=== PATIENT | male | born 1965 | race American Indian/Alaskan Native ===

== ENCOUNTER 2016-12-12 11:22 | Emergency (ER) | payer OTHER ==
--- NOTE | 2016-12-12 12:56 | Emergency Department Report ---
ED General Adult HPI - General Chief complaint: Back Pain/Injury Stated complaint: BACK PAIN Time Seen by Provider: 12/12/16 12:51 Source: patient, RN notes reviewed Mode of arrival: Ambulatory Limitations: No Limitations - History of Present Illness Initial comments: This is a 51-year-old male. He is previously unknown to me. He does not have a primary care doctor. Reports a past medical history of elevated blood pressure, not currently on prescription medications. May have a history of kidney stones, he is not certain. The patient does a lot of heavy lifting at work. He presents to the ER with right paralumbar and parathoracic muscular back pain. The pain is sharp, increased with palpation, range of motion, twisting, laying on his side. It decreases with rest. It does not radiate anywhere. There is no chest pain or shortness of breath. There is no testicular pain. No irritative or obstructive urinary symptoms. No bladder or bowel retention or incontinence. No saddle anesthesia. No hematuria. -: Gradual Location: back Radiation: non-radiation Severity scale (0 -10): 8 Quality: burning, stabbing, aching Consistency: constant Improves with: medication, rest Worsens with: movement Associated Symptoms: denies other symptoms - Related Data Previous Rx's Medication Instructions Recorded Last Taken Type Ketorolac [Toradol] 10 mg PO Q6H PRN #20 tablet 12/12/16 Unknown Rx Methocarbamol [Robaxin TAB] 750 mg PO TID PRN #30 tab 12/12/16 Unknown Rx Allergies Allergy/AdvReac Type Severity Reaction Status Date / Time No Known Allergies Allergy Unverified 12/12/16 11:54 ED Review of Systems ROS: Stated complaint: BACK PAIN Other details as noted in HPI Constitutional: denies: malaise Eyes: denies: vision change ENT: denies: epistaxis Respiratory: denies: cough Cardiovascular: denies: chest pain Gastrointestinal: denies: abdominal pain, nausea, diarrhea Genitourinary: denies: urgency, dysuria Musculoskeletal: back pain Skin: denies: lesions Neurological: denies: headache, weakness Psychiatric: denies: anxiety ED Past Medical Hx - Past Medical History Previous Medical History?: No - Surgical History Additional Surgical History: R arm & ankle surgery, hernia repair - Social History Smoking Status: Never Smoker Substance Use Type: Alcohol - Medications Home Medications: Home Medications Medication Instructions Recorded Confirmed Last Taken Type Ketorolac [Toradol] 10 mg PO Q6H PRN #20 tablet 12/12/16 Unknown Rx Methocarbamol [Robaxin TAB] 750 mg PO TID PRN #30 tab 12/12/16 Unknown Rx ED Physical Exam - General Limitations: No Limitations General appearance: alert, in no apparent distress - Head Head exam: Present: atraumatic, normocephalic - Eye Eye exam: Present: normal appearance, EOMI. Absent: nystagmus - ENT ENT exam: Present: normal exam, normal orophraynx, mucous membranes moist, normal external ear exam - Neck Neck exam: Present: normal inspection, full ROM. Absent: tenderness, meningismus - Respiratory Respiratory exam: Present: normal lung sounds bilaterally. Absent: respiratory distress, wheezes, rales, rhonchi, stridor, decreased breath sounds - Cardiovascular Cardiovascular Exam: Present: regular rate, normal rhythm, normal heart sounds. Absent: bradycardia, tachycardia, irregular rhythm, systolic murmur, diastolic murmur, rubs, gallop - GI/Abdominal GI/Abdominal exam: Present: soft, normal bowel sounds. Absent: distended, tenderness, guarding, rebound, rigid, pulsatile mass - Rectal Rectal exam: Present: deferred - Extremities Exam Extremities exam: Present: normal inspection, full ROM, normal capillary refill , other (2+ pulses are noted in 4 extremities). Absent: tenderness, pedal edema , joint swelling, calf tenderness - Back Exam Back exam: Present: normal inspection, CVA tenderness (R), paraspinal tenderness - Neurological Exam Neurological exam: Present: alert, oriented X3, normal gait, other (Extraocular movements intact. Tongue midline. No facial droop. Facial sensation intact to light touch in the V1, V2, V3 distribution bilaterally. 5 and 5 strength in 4 extremities.. Sensation is intact to light touch in 4 extremities.). Absent : motor sensory deficit - Psychiatric Psychiatric exam: Present: normal affect, normal mood - Skin Skin exam: Present: warm, dry, intact, normal color. Absent: rash ED Course Vital Signs 12/12/16 12/12/16 12/12/16 11:44 12:54 12:56 Temperature 98.7 F 98.5 F Pulse Rate 95 H 87 Respiratory 20 16 16 Rate Blood Pressure 196/130 Blood Pressure 185/116 [Right] O2 Sat by Pulse 96 97 97 Oximetry - Reevaluation(s) Reevaluation #1: 12/12/16 14:36 Differential diagnosis: Muscular pain, muscular spasm, renal colic, AAA, urinary tract infection, pyelonephritis Assessment and plan: 51-year-old male with mechanical back pain, does a lot of heavy lifting for work. The pain is exquisitely reproducible. Elevated blood pressure is appreciated, this is chronic, the patient is not taking any prescription medications. He has no pulmonary embolus or DVT risk factors, he is low risk by well's criteria. He has a normal neurologic exam, with appropriate strength, sensation, proprioception in 4 extremities. Skin medical picture is not consistent with epidural compression syndrome, and the patient reported marked improvement after Toradol and hydromorphone. He is instructed to follow-up with a primary care doctor for his elevated blood pressure. The risks of not following up for elevated blood pressure were explicitly reviewed with the patient. A noncontrast CT scan of the abdomen and pelvis did not do demonstrate any acute pathology, and his laboratory studies and urinalysis were not consistent with renal insufficiency, pancreatitis, biliary colic, or urinary tract infection. ED Medical Decision Making - Lab Data Result diagrams: 12/12/16 13:27 12/12/16 13:27 Vital Signs 12/12/16 12/12/16 12/12/16 11:44 12:54 12:56 Temperature 98.7 F 98.5 F Pulse Rate 95 H 87 Respiratory 20 16 16 Rate Blood Pressure 196/130 Blood Pressure 185/116 [Right] O2 Sat by Pulse 96 97 97 Oximetry Lab Results 12/12/16 12/12/16 12/12/16 Range/Units 13:27 13:27 Unknown WBC 11.1 H (4.5-11.0) K/mm3 RBC 5.60 H (3.65-5.03) M/mm3 Hgb 16.7 H (11.8-15.2) gm/dl Hct 50.3 H (35.5-45.6) % MCV 90 (84-94) fl MCH 30 (28-32) pg MCHC 33 (32-34) % RDW 13.7 (13.2-15.2) % Plt Count 272 (140-440) K/mm3 Sodium 138 (137-145) mmol/L Potassium 4.3 (3.6-5.0) mmol/L Chloride 101.8 (98-107) mmol/L Carbon Dioxide 22 (22-30) mmol/L Anion Gap 19 mmol/L BUN 13 (9-20) mg/dL Creatinine 0.7 L (0.8-1.5) mg/dL Estimated GFR > 60 ml/min BUN/Creatinine Ratio 18.57 % Glucose 93 (75-100) mg/dL Calcium 9.1 (8.4-10.2) mg/dL Total Bilirubin 0.9 (0.1-1.2) mg/dL AST 24 (5-40) units/L ALT 26 (7-56) units/L Alkaline Phosphatase 103 (35-129) units/L Total Creatine Kinase 123 (55-170) units/L Total Protein 7.6 (6.3-8.2) g/dL Albumin 4.4 (3.9-5) g/dL Albumin/Globulin Ratio 1.4 % Lipase 13 (13-60) units/L Urine Color Yellow (Yellow) Urine Turbidity Clear (Clear) Urine pH 8.0 H (5.0-7.0) Ur Specific [place] 1.018 (1.003-1.030) Urine Protein <15 mg/dl (Negative) mg/dL Urine Glucose (UA) Neg (Negative) mg/dL Urine Ketones Neg (Negative) mg/dL Urine Blood Neg (Negative) Urine Nitrite Neg (Negative) Urine Bilirubin Neg (Negative) Urine Urobilinogen < 2.0 (<2.0) mg/dL Ur Leukocyte Esterase Neg (Negative) Urine WBC (Auto) < 1.0 (0.0-6.0) /HPF Urine RBC (Auto) 2.0 (0.0-6.0) /HPF Urine Mucus Few /HPF - EKG Data -: EKG Interpreted by [place] EKG shows normal: sinus rhythm, axis, intervals, QRS complexes, ST-T waves Rate: normal - EKG Data When compared to previous EKG there are: previous EKG unavailable - Radiology Data Radiology results: report reviewed, image reviewed Noncontrast CT scan of the abdomen and pelvis negative for acute disease. Scattered punctate renal calyceal stones noted in both kidneys. 4 cm cyst noted in the superior pole of the right kidney. Normal appendix. Critical care attestation.: If time is entered above; I have spent that time in minutes in the direct care of this critically ill patient, excluding procedure time. ED Disposition Clinical Impression: Back pain, Elevated blood pressure Disposition: DISCHARGED TO HOME OR SELFCARE Is pt being admited?: No Does the pt Need Aspirin: No Condition: Stable Instructions: Back Pain (ED), Hypertension (ED) Additional Instructions: Rest and avoid heavy lifting. Take the medications as directed. If taking the methocarbamol for pain, do not drive, consume alcohol, operate motor vehicles, or make important decisions. This medication is sedating. Follow-up with a primary care doctor within the next 7-10 days. Please note that your blood pressure was elevated while in the emergency department. This should be followed up by a primary care doctor within the recommended timeframe. Long-term complications of hypertension/elevated blood pressure include stroke, heart attack, disability, , paralysis, loss of quality of life. Return to the ER right away with new pain, worsened pain, migration of pain, fevers or chills, intractable nausea or vomiting, inability to tolerate liquid feeds. Referrals: PRIMARY MD JENNIFER [Primary Care Provider] - 3-5 Days BERENICE ECHOLS MD [Staff Physician] - 3-5 Days [facility] [Provider Group] - 3-5 Days Forms: Work/School Release Form(ED)
[2016-12-12 13:14] LABS: Bilirubin,Urine NEG (Negative); Blood,Urine NEG (Negative); Ketones,Urine NEG (Negative); Leukocyte Esterase,Urine NEG (Negative); Mucus,Urine FEW /HPF; Nitrite,Urine NEG (Negative); Protein,Urine <15 mg/dL mg/dL (Negative); Urobilinogen,Urine < 2.0 mg/dL (<2.0); WBC,Urine < 1.0 /HPF (0.0-6.0)
[2016-12-12] MEDS ORDERED: DILAUDID IV ONE (13:15)
[2016-12-12] MEDS ORDERED: TYLENOL PO ONE (13:15)
[2016-12-12] MEDS ORDERED: TORADOL IV ONE (13:15)
[2016-12-12] MEDS ORDERED: NACL 0.9% 1000 ML 1,000 ML IV ONE (13:15)
[2016-12-12 13:41] LABS: Hematocrit 50.3 % (35.5-45.6); Hemoglobin 16.7 gm/dl (11.8-15.2); Mean Corpuscular HGB Conc 33 % (32-34); Mean Corpuscular Hemoglobin 30 pg (28-32); Mean Corpuscular Volume 90 fl (84-94); Platelet Count 272 K/mm3 (140-440); Red Cell Distribution Width 13.7 % (13.2-15.2); White Blood Count 11.1 K/mm3 (4.5-11.0)
[2016-12-12 13:58] LABS: Alanine Aminotransferase 26 units/L (7-56); Albumin 4.4 g/dL (3.9-5); Albumin/Globulin Ratio 1.4 %; Alkaline Phosphatase 103 units/L (35-129); Anion Gap 19 mmol/L; BUN/Creatinine Ratio 18.57; Bilirubin,Total 0.9 mg/dL (0.1-1.2); Blood Urea Nitrogen 13 mg/dL (9-20); Calcium 9.1 mg/dL (8.4-10.2); Carbon Dioxide 22 mmol/L (22-30); Chloride 101.8 mmol/L (98-107); Creatine Kinase 123 units/L (55-170); Glucose 93 mg/dL (75-100); Lipase 13 units/L (13-60); Potassium 4.3 mmol/L (3.6-5.0); Sodium 138 mmol/L (137-145); Total Protein 7.6 g/dL (6.3-8.2)
--- NOTE | 2016-12-12 14:08 | Cat Scan Report ---
CT OF THE ABDOMEN AND PELVIS WITHOUT CONTRAST HISTORY: Back pain, flank pain. TECHNIQUE: Helical CT without contrast. Sagittal and coronal reformatted images. FINDINGS: There are scattered punctate renal calyceal stones in both kidneys. 4 cm cyst is identified at the superior pole of the right kidney. The ureters are normal course and caliber. Normal bladder. Normal liver, biliary system, pancreas, spleen and adrenal glands. The bowel loops are normal caliber and wall thickness. Normal appendix. The aorta is normal caliber. No evidence for aneurysm. No ascites, adenopathy or acute inflammation. The lung bases are clear. Normal heart size. No suspicious bony lesion. IMPRESSION: Punctate bilateral renal stones, no hydronephrosis or ureteral stones. Right renal cyst.
[2016-12-12 14:55] VITALS: BP 195/114
== END 2016-12-12 14:57 | disposition home or self-care (01) ==
LOC: ED 11:22
DX: M54.5 Low back pain (principal); M54.6 Pain in thoracic spine; R03.0 Elevated blood-pressure reading, without diagnosis of hypertension
CPT/HCPCS: 36415; 74176; 80053; 81001; 82550; 83690; 85027; 93005; 93010; 96361; 96374; 96375; 99284; J1170; J1885; J7030

== ENCOUNTER 2022-04-09 23:33 | Emergency (ER) | payer OTHER ==
[2022-04-10] MEDS ORDERED: KETOROLAC 10 MG TAB PO ONE (00:40)
--- NOTE | 2022-04-10 00:48 | Emergency Department Report ---
ED Fall HPI - General Chief Complaint: Fall Stated Complaint: FALL/BALANCE OFF Time Seen by Provider: 04/10/22 00:39 Source: patient Mode of arrival: Ambulatory - History of Present Illness Initial Comments: 56 yo M brought in by family member with a fall in the bathroom. Pt was suppose to be taken a bath when the family member heard a fall. She tried to pick patient up then fell again. Pt now c/o right shoulder pain and headache. No other modifying or associated factors. MD Complaint: fall - Related Data Previous Rx's Medication Instructions Recorded Last Taken Type Ketorolac [Toradol] 10 mg PO Q6H PRN #20 tablet 12/12/16 Unknown Rx methOCARBAMOL [Robaxin TAB] 750 mg PO TID PRN #30 tab 12/12/16 Unknown Rx Amlodipine Besylate [Norvasc] 10 mg PO DAILY #30 tablet 08/11/18 Unknown Rx Aspirin EC [Halfprin EC] 81 mg PO QDAY #30 tablet. 08/11/18 Unknown Rx AtorvaSTATin [Lipitor] 40 mg PO QHS #30 tablet 08/11/18 Unknown Rx Pantoprazole [Protonix TAB] 40 mg PO QDAY #30 tablet 08/11/18 Unknown Rx lisinopriL [Zestril TAB] 20 mg PO QDAY #30 tablet 08/11/18 Unknown Rx Allergies Allergy/AdvReac Type Severity Reaction Status Date / Time No Known Allergies Allergy Verified 08/08/18 18:31 ED Review of Systems ROS: Stated complaint: FALL/BALANCE OFF Other details as noted in HPI Comment: All other systems reviewed and negative Musculoskeletal: myalgia, other (right shoulder pain and headache ) Neurological: headache ED Past Medical Hx - Past Medical History Hx Hypertension: Yes - Surgical History Additional Surgical History: R arm & ankle surgery, hernia repair - Social History Smoking Status: Never Smoker - Medications Home Medications: Home Medications Medication Instructions Recorded Confirmed Last Taken Type Ketorolac [Toradol] 10 mg PO Q6H PRN #20 tablet 12/12/16 08/09/18 Unknown Rx methOCARBAMOL [Robaxin TAB] 750 mg PO TID PRN #30 tab 12/12/16 08/09/18 Unknown Rx Amlodipine Besylate [Norvasc] 10 mg PO DAILY #30 tablet 08/11/18 Unknown Rx Aspirin EC [Halfprin EC] 81 mg PO QDAY #30 tablet. 08/11/18 Unknown Rx AtorvaSTATin [Lipitor] 40 mg PO QHS #30 tablet 08/11/18 Unknown Rx Pantoprazole [Protonix TAB] 40 mg PO QDAY #30 tablet 08/11/18 Unknown Rx lisinopriL [Zestril TAB] 20 mg PO QDAY #30 tablet 08/11/18 Unknown Rx ED Physical Exam - General Limitations: No Limitations General appearance: alert, in no apparent distress - Head Head exam: Present: atraumatic, normal inspection - Eye Eye exam: Present: normal appearance Pupils: Present: normal accommodation - ENT ENT exam: Present: normal exam, normal orophraynx, mucous membranes moist - Neck Neck exam: Present: normal inspection, tenderness (to the posterior midline ), full ROM - Respiratory Respiratory exam: Present: normal lung sounds bilaterally. Absent: respiratory distress, accessory muscle use - Cardiovascular Cardiovascular Exam: Present: regular rate, normal rhythm, normal heart sounds - GI/Abdominal GI/Abdominal exam: Present: soft, normal bowel sounds. Absent: distended, tenderness - Extremities Exam Extremities exam: Present: normal inspection, full ROM, normal capillary refill. Absent: tenderness, pedal edema - Back Exam Back exam: Present: other (bruise to the upper right shoulder ). Absent: tenderness - Neurological Exam Neurological exam: Present: alert, oriented X3 - Psychiatric Psychiatric exam: Present: normal affect, normal mood - Skin Skin exam: Present: warm, intact ED Course Vital Signs 04/09/22 04/10/22 04/10/22 23:36 01:10 01:15 Temperature 98.7 F Pulse Rate 101 H 98 H 99 H Respiratory 20 18 17 Rate Blood Pressure 164/90 Blood Pressure 199/93 [Left] O2 Sat by Pulse 94 93 94 Oximetry 04/10/22 04/10/22 04/10/22 01:31 01:37 01:45 Temperature Pulse Rate 95 H 94 H Respiratory 20 20 19 Rate Blood Pressure 158/85 149/91 Blood Pressure [Left] O2 Sat by Pulse 93 96 92 Oximetry 04/10/22 04/10/22 04/10/22 02:01 02:15 02:31 Temperature Pulse Rate 93 H 90 93 H Respiratory 22 21 14 Rate Blood Pressure 163/98 150/93 151/90 Blood Pressure [Left] O2 Sat by Pulse 93 94 94 Oximetry 07/04/10/22 04/10/22 02:45 03:01 03:15 Temperature Pulse Rate 84 84 76 Respiratory 18 16 15 Rate Blood Pressure 143/85 143/82 138/80 Blood Pressure [Left] O2 Sat by Pulse 92 93 92 Oximetry 04/10/22 04/10/22 04/10/22 03:31 03:45 04:01 Temperature Pulse Rate 97 H 84 89 Respiratory 18 20 15 Rate Blood Pressure 164/90 151/87 164/90 Blood Pressure [Left] O2 Sat by Pulse 93 95 95 Oximetry 04/10/22 04/10/22 04/10/22 04:15 04:31 04:45 Temperature Pulse Rate 91 H 91 H 85 Respiratory 18 16 20 Rate Blood Pressure 136/80 151/98 144/83 Blood Pressure [Left] O2 Sat by Pulse 96 96 94 Oximetry 04/10/22 04/10/22 04/10/22 05:01 05:15 05:31 Temperature Pulse Rate 80 79 89 Respiratory 18 21 19 Rate Blood Pressure 138/84 139/83 155/86 Blood Pressure [Left] O2 Sat by Pulse 93 95 94 Oximetry 04/10/22 05:45 Temperature Pulse Rate 68 Respiratory 16 Rate Blood Pressure 159/85 Blood Pressure [Left] O2 Sat by Pulse 94 Oximetry ED Medical Decision Making - Radiology Data xray shoulder noted with no acute bony abnormality CT cervical noted with no acute findings - Medical Decision Making here with fall in the bathroom associated with posterior neck tenderness and ALDRIDGE with right shoulder tenderness-- so will order xray right shouder to rule out fx or dislocation and CT head and Cervical for any intracranial abnormality-- CT head noted with FINDINGS: CEREBRAL HEMISPHERES: Generalized atrophy and bilateral regions of periventricular white matter hypoattenuation compatible with microvascular ischemia are demonstrated. No midline shift. Basal cisterns patent. 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 Additional more focal hypoattenuating regions within the periventricular white matter are demonstrated bilaterally. HEMORRHAGE: None. CEREBELLUM / BRAINSTEM: No significant abnormality. ORBITS: No significant abnormality. SOFT TISSUES: No significant abnormality. SKULL: No significant abnormality. PARANASAL SINUSES / MASTOID AIR CELLS: Near total opacification of the right maxillary sinus. ADDITIONAL FINDINGS: None. IMPRESSION: 1. Since comparison study there has been interval increase in bilateral focal regions of white matter more diffusely present through out the periventricular white matter. Differential considerations include progression of microvascular ischemia as well as demyelinating process. MRI brain prior to and following intravenous contrast administration is recommended for further evaluation. 2. No acute traumatic injury. 3. Opacification right maxillary sinus possibly due to large because retention cyst. With the above findings will have patient follow up with PCP for further evaluation regarding getting non urgent brain MRI for differential including demyelinating process CT cervical with on acute findings Xray right shoulder with no acute bony findings -- Critical care attestation.: If time is entered above; I have spent that time in minutes in the direct care of this critically ill patient, excluding procedure time. ED Disposition Clinical Impression: Fall Qualifiers: Encounter type: initial encounter Qualified Code(s): W19.XXXA - Unspecified fall, initial encounter Right shoulder pain Qualifiers: Chronicity: acute Qualified Code(s): M25.511 - Pain in right shoulder Disposition: 01 HOME / SELF CARE / HOMELESS Is pt being admited?: No Does the pt Need Aspirin: No Condition: Stable Instructions: How to Use Cold Therapy, [id number], Shoulder Pain, [id number], Musculoskeletal Pain, Joint Pain, [id number] Additional Instructions: It is very important that you call and follow-up with your primary doctor and discussed the finding on your brain CT scan for further evaluation with MRI in the next 1 to 2 weeks for progress Please call or bring patient back to the emergency room if your symptoms worsen Referrals: PRIMARY CAREMD [Primary Care Provider] - 3-5 Days Time of Disposition: 05:48
--- NOTE | 2022-04-10 01:42 | XRay Report ---
RIGHT SHOULDER 3 VIEW(S) INDICATION / CLINICAL INFORMATION: fall and pain. COMPARISON: None available. FINDINGS: No fracture, dislocation, or significant soft tissue abnormality is demonstrated. No radiopaque forei gn bodies are identified. IMPRESSION: 1. No acute findings. No significant abnormality. Signer Name: Saroj Dong II, MD Signed: 04/10/2022 1:37 AM Workstation Name: [id number]
--- NOTE | 2022-04-10 01:43 | Cat Scan Report ---
CT CERVICAL SPINE WITHOUT CONTRAST INDICATION / CLINICAL INFORMATION: fall and pain. TECHNIQUE: Axial CT images were obtained through the cervical spine. Sagittal and coronal reformatted images were produced. All CT scans at this location are performed using CT dose reduction for ALARA by means of automated exposure control. COMPARISON: None available. FINDINGS: MANDIBLE: No significant abnormality of the visualized mandible or TMJs. SKULL BASE: No significant abnormality of the skull base. CRANIOCERVICAL JUNCTION: No significant abnormality of the craniocervical junction. CERVICAL SPINE: Cervical spine demonstrates normal alignment without evidence of acute fracture. No s evere central stenosis. SOFT TISSUES: No significant abnormality of soft tissues or musculature. THYROID: No significant abnormality. UPPER CHEST: No significant abnormality of the visualized chest. ADDITIONAL FINDINGS: None. IMPRESSION: 1. No evidence of acute osseous injury. Signer Name: Saroj Dong II, MD Signed: 04/10/2022 1:39 AM Workstation Name: [id number]
--- NOTE | 2022-04-10 01:48 | Cat Scan Report ---
CT HEAD WITHOUT CONTRAST INDICATION / CLINICAL INFORMATION: fall. TECHNIQUE: CT head was performed without administration of intravenous contrast. All CT scans at this location are performed using CT dose reduction for ALARA by means of automated exposure control. COMPARISON: CT head 08/08/2018 FINDINGS: CEREBRAL HEMISPHERES: Generalized atrophy and bilateral regions of periventricular white matter hypoa ttenuation compatible with microvascular ischemia are demonstrated. No midline shift. Basal cisterns patent. 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 Additional more focal hyp oattenuating regions within the periventricular white matter are demonstrated bilaterally. HEMORRHAGE: None. CEREBELLUM / BRAINSTEM: No significant abnormality. ORBITS: No significant abnormality. SOFT TISSUES: No significant abnormality. SKULL: No significant abnormality. PARANASAL SINUSES / MASTOID AIR CELLS: Near total opacification of the right maxillary sinus. ADDITIONAL FINDINGS: None. IMPRESSION: 1. Since comparison study there has been interval increase in bilateral focal regions of white matter more diffusely present through out the periventricular white matter. Differential considerations inc lude progression of microvascular ischemia as well as demyelinating process. MRI brain prior to and f ollowing intravenous contrast administration is recommended for further evaluation. 2. No acute traumatic injury. 3. Opacification right maxillary sinus possibly due to large because retention cyst. Signer Name: Saroj Dong II, MD Signed: 04/10/2022 1:44 AM Workstation Name: [id number]
[2022-04-10 03:45] LABS: Bilirubin,Urine Negative (Negative); Blood,Urine Negative (Negative); Color,Urine Colorless (Yellow); Protein,Urine <15 mg/dL mg/dL (Negative)
[2022-04-10 03:46] LABS: RBC,Urine < 1.0 /HPF (0.0-6.0); Urobilinogen,Urine 0.2 mg/dL (<2.0); WBC,Urine < 1.0 /HPF (0.0-6.0)
[2022-04-10 05:52] VITALS: BP 159/85
--- NOTE | 2022-04-10 09:42 | Electrocardiograph Report ---
[facility] Test Date: 2022-04-09 Test Time: 23:43:42 Pat Name: DANNY RIVERA Department: Room: Gender: M Leaf Sorter: LOWELL : 1965 Requested By: DERECK DUEÑAS Order Number: [id number] Reading MD: Jaren Lamb Measurements Intervals Mallory Rate: 99 P: 46 IL: 143 QRS: 9 QRSD: 97 T: 58 QT: 380 QTc: 486 Interpretive Statements Sinus rhythm Atrial premature complex Left atrial enlargement No previous ECG available for comparison Electronically Signed On 04-10-2022 9:41:46 EDT by Jaren Lamb
== END 2022-04-10 06:06 | disposition home or self-care (01) ==
LOC: ED 23:33
DX: M25.511 Pain in right shoulder (principal); I10 Essential (primary) hypertension; Z98.890 Other specified postprocedural states; W18.39XA Other fall on same level, initial encounter; Y93.89 Activity, other specified; Y92.89 Other specified places as the place of occurrence of the external cause; Y99.8 Other external cause status
CPT/HCPCS: 70450; 72125; 81001; 93005; 99284